=== PATIENT | male | born 1960 | race Two or more races ===

== ENCOUNTER 2018-06-09 04:44 | Inpatient (IN) | payer MEDICAID ==
[~2018-06-09] VITALS: Ht 172.7 cm; Wt 68.0 kg
[2018-06-09 05:58] VITALS: BP 135/63
--- NOTE | 2018-06-09 06:36 | NUR ---
RN ADMITTING NOTES RECEIVED PATIENT FROM [facility] ED. IN A GURNEY WITH CONSTRUCTION FRAMER. PATIENT STABLE ON TRANSFER. VSS. PATIENT OBSERVED TO BE LETHARGIC, AMBULATORY WITH STEADY GAIT, STANDBY ASSIST. PATIENT UNABLE TO PROVIDE INFORMATION FOR ADMIT PROCESS, WILL ENDORSE ACCORDINGLY TO AM NURSE TO COMPLETE ADMIT PROCESS. SKIN CHECK DONE WITH CHARGE NURSE, PICTURES TAKEN AND FILED IN CHART. CONNECTED TO TELE, SR WITH PVCs, HR AT 80-90s. NO COMPLAINT OF SHORTNESS OF BREATH ON TIME OF ADMIT. MRSA SWAB DONE, SENT TO LAB. CALL LIGHT IN REACH. BED ALARM IN PLACE. WILL ENDORSE ACCORDINGLY. Addendum: 06/09/18 at 0643 by OUMAR GARG RN UNABLE TO IDENTIFY AND REPORT HOME MEDS, PATIENT IS LETHARGIC. WILL ENDORSE TO F/UP ACCORDINGLY.
[2018-06-09] MEDS ORDERED: ACETAMINOPHEN 325 MG TABLET PO PRN (07:30)
[2018-06-09] MEDS ORDERED: ONDANSETRON HCL/PF 4 MG/2 ML VIAL IVP PRN (07:30)
[2018-06-09] MEDS ORDERED: Z GUARD REMEDY 2 OZ OINT TP PRN (07:30)
[2018-06-09] MEDS ORDERED: MAGNESIUM HYDROXIDE 30 ML UDC PO PRN (07:30)
[2018-06-09] MEDS ORDERED: DEXTROSE 50%-WATER 50 ML DISP.SYRIN IV PRN (07:30)
[2018-06-09] MEDS: BLOOD SUGAR DIAGNOSTIC 1 EACH STRIP IN SCH ×4 (07:39→22:26)
[2018-06-09 08:00] VITALS: BP 124/76
[2018-06-09] MEDS ORDERED: [UNRECOGNIZED DRUG - REMARK] PO (08:25)
[2018-06-09] MEDS ORDERED: [UNRECOGNIZED DRUG - REMARK] PO (08:25)
[2018-06-09] MEDS ORDERED: ERGO500014 PO (09:23)
[2018-06-09] MEDS ORDERED: BUME1TAB4 PO (09:23)
[2018-06-09] MEDS ORDERED: SPIR25TA PO (09:23)
[2018-06-09] MEDS ORDERED: AMLO5TAB9 PO (09:23)
--- NOTE | 2018-06-09 09:43 | NUR ---
WOUND CARE CONSULT: PT PRESENTS WITH SACRAL ULCER, STAGE 3 AND BUTTOCK RASH, PRESENT ON ADMISSION. PT IS ABLE TO REPOSITION IN BED AND IS CONTINENT. RECOMMENDATIONS MADE FOR WOUND CARE AND SKIN PROTECTION. DISCUSSED WITH NURSING STAFF. RECOMMEND SURGICAL CONSULT. WILL SEE PRN. ROCK IN AGREEMENT WITH PLAN OF CARE. CURRENT MITUL SCORE IS 18. Addendum: 06/09/18 at 0944 by ANNIE NOLEN WNDNU Amended: Links added.
[2018-06-09] MEDS: AZITHROMYCIN 250 MG TABLET PO SCH (10:23)
[2018-06-09] MEDS: HYDROGEL DRESSING 90 GM TUBE TP PRN (10:23)
[2018-06-09 10:29] LABS: BASOPHILS % (AUTO) 0.4 % (0.0-2.0); EOSINOPHILS % (AUTO) 0.1 % (0.0-6.0); HEMATOCRIT 36 % (39-51); LYMPHOCYTES # (AUTO) 0.4 /CMM (0.8-4.8); LYMPHOCYTES % (AUTO) 6.3 % (20.0-44.0); MEAN CORPUSCULAR HGB CONC 34 g/dl (31.0-36.0); MEAN CORPUSCULAR VOLUME 90 fL (80-96); MONOCYTES # (AUTO) 0.4 /CMM (0.1-1.30); MONOCYTES % (AUTO) 7.3 % (2.0-12.0); NEUTROPHILS # (AUTO) 4.9 /CMM (1.8-8.9); NEUTROPHILS % (AUTO) 85.9 % (43.0-81.0); PLATELET COUNT (AUTO) 128 /CMM (150-450); RED BLOOD CELL COUNT(AUTO) 3.98 MIL/uL (4.5-6.0); WHITE BLOOD COUNT (AUTO) 5.7 K/uL (4.3-11.0)
[2018-06-09] MEDS: HYDROGEL DRESSING 90 GM TUBE TP SCH (10:35)
[2018-06-09] MEDS: INSULIN REGULAR, HUMAN 100 UNIT/ML 3 ML VIAL SQ PRN ×3 (10:35→22:26)
[2018-06-09 10:41] LABS: ALBUMIN 2.7 g/dL (3.4-5.0); BILIRUBIN,DIRECT 0.3 mg/dL (0.0-0.2); BILIRUBIN,TOTAL 0.9 mg/dL (0.2-1.0); CALCIUM, SERUM 8.3 mg/dL (8.5-10.1); CREATININE 1.4 mg/dL (0.6-1.3); MAGNESIUM 1.6 mg/dL (1.8-2.4); PHOSPHORUS 3.7 mg/dL (2.5-4.9); POTASSIUM 4.2 mmol/L (3.5-5.1); TOTAL PROTEIN, SERUM 6.5 g/dL (6.4-8.2)
[2018-06-09 10:50] LABS: THYROID STIMULATING HORMONE 0.504 uIU/mL (0.358-3.74)
[2018-06-09] MEDS: IPRATROPIUM NEB FS 0.5 MG/2.5 ML AMPUL.NEB NEB SCH ×3 (11:02→19:30)
[2018-06-09] MEDS: ALBUTEROL FS 2.5 MG/0.5 ML VIAL.NEB NEB SCH ×3 (11:02→19:30)
[2018-06-09 11:17] LABS: ABG OXYGEN SATURATION 93.9 % (92.0-98.5); ABG PCO2 33.5 mmHg (35.0-45.0); ABG PH 7.459 (7.350-7.450); AaDO2 38.6 mmHg; MetHb 0.5 % (0.0-1.5); O2Hb 92.5 % (94.0-97.0); SITE, ABG Right Radial
[2018-06-09] MEDS: HYDROCODONE/APAP 5/325MG 1 EACH TABLET PO PRN ×3 (11:41→21:47)
[2018-06-09 12:00] VITALS: BP 113/74
[2018-06-09] MEDS ORDERED: MAGNESIUM OXIDE 400 MG TABLET PO ONE (13:00)
--- NOTE | 2018-06-09 13:56 | NUR ---
Social service consult requested by FARZANA Rodriguez for homelessness. Pt. is a 58 year old gentleman who was admitted to [facility] for pneumonia. SW met with pt. bedside. Pt. is alert and oriented x 4. Pt. was sitting upright with his legs dangling off the bed. Pt. is very pleasant and cooperative with SW during the assessment. Pt. is ambulatory. Pt. was renting a private room in [place] until last week. Pt. stated he had to leave to pay for his car registration and insurance. Pt. has been homeless since then and has been staying in his car. Pt. states his car is currently parked by a [employer] yard. Pt. receives $1000/ month in SSI. Pt. states he will look for a room for rent at the beginning of next month when he has his SSI. SW informed pt. she can provide him phone number to [facility] since the rental rate starts at $650. Pt. stated, " that would work for me." Pt. denies any alcohol and drug use. 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 Pt. smokes 3 to 4 cigarettes per day. Pt. states he gets depressed and anxious once in a while but not enough to take medication for it. SW offered pt. [facility] placement and explained the pick up worker location and times. Pt. stated, he will most likely not go to a assisted but will take the resources. SW to give pt list of [facility] placement [phone] and other Homeless resources which will include health clinics, mental health clinics etc. Homeless patient waiver form to be signed by patient upon discharge. No other social service needs are required at this time. SW is available, if needed.
[2018-06-09] MEDS: Magnesium 1GM/D5W 100ML PREMIX 100 ML IV SCH ×2 (14:08→15:46)
[2018-06-09] MEDS: FUROSEMIDE 40 MG/4 ML VIAL IV SCH ×3 (14:08→21:48)
--- NOTE | 2018-06-09 15:33 | NUR ---
SW met with pt. bedside and gave him the following resources: List of [facility] program [phone] with picker feeder time and locations; [facility] [place] Homeless Directory, mental health clinics such as [facility] [address] [place] [address] ;[facility] ([facility]al Health) [address], 2nd [place] [address] Main Number: ;[facility] [id number] [place], [place] [phone] ;[facility] [address] [place], [place] [phone] Healthcare Clinics for Homeless Patients [facility] [address], Vaccines and infectious disease resource [address] [place]. [place] Hours: M, T, Th, F 8:30AM-4:30PM Walk-ins allowed Provide medical screening and pharmacy [facility] [address] [place] [address] Vaccines and infectious diseases Hours M-F 8AM-3:30PM Walk-ins allowed Provide medical screening and pharmacy [facility] [address] [place] [address] Hours 8AM-4:30PM Walk-ins allowed Provide medical screening and pharmacy SW also gave pt. information to [facility] $700/MONTH CONTACT [facility] ;[facility] $650/MONTH CONTACT [facility] ;LOCATIONS IN [facility]. Homeless Patient Waiver form was signed by the pt. and placed in pt's chart. No other social service needs are requested at this time.
[2018-06-09 16:00] VITALS: BP 119/80
[2018-06-09 20:00] VITALS: BP_SYST 136; BP_SYST 144; BP_DIAS 76; BP_DIAS 81
--- NOTE | 2018-06-09 20:00 | NUR ---
RN INITIAL NOTES RECEIVED PATIENT IN BED. A&O X4. ON TO TELE, SR WITH PVCs, HR 90s. PT COMPLAINT OF SHORTNESS OF BREATH, PT PLACED ON O2 2L NS. BED IN LOW AND LOCKED POSITION, CALL LIGHT IN REACH. BED ALARM IN PLACE. WILL CONT TO MONITOR.
[2018-06-09] MEDS: ZOLPIDEM TARTRATE 5 MG TABLET PO PRN (21:48)
[2018-06-09] MEDS: CEFTRIAXONE 1 G in IV D5W 50 ML IV SCH (21:48)
[2018-06-10] VITALS: BP 136/81
[2018-06-10] MEDS: ALBUTEROL FS 2.5 MG/0.5 ML VIAL.NEB NEB SCH ×4 (01:25→18:52)
[2018-06-10] MEDS: IPRATROPIUM NEB FS 0.5 MG/2.5 ML AMPUL.NEB NEB SCH ×4 (01:25→18:52)
[2018-06-10 04:00] VITALS: BP 133/80
[2018-06-10] MEDS: HYDROCODONE/APAP 5/325MG 1 EACH TABLET PO PRN ×5 (04:28→23:07)
[2018-06-10 06:27] LABS: BASOPHILS % (AUTO) 0.5 % (0.0-2.0); EOSINOPHILS % (AUTO) 0.1 % (0.0-6.0); HEMATOCRIT 37 % (39-51); HEMOGLOBIN 12.6 g/dL (13.5-17.5); LYMPHOCYTES # (AUTO) 0.4 /CMM (0.8-4.8); LYMPHOCYTES % (AUTO) 7.6 % (20.0-44.0); MEAN CORPUSCULAR HGB CONC 34 g/dl (31.0-36.0); MEAN CORPUSCULAR VOLUME 90 fL (80-96); MONOCYTES # (AUTO) 0.4 /CMM (0.1-1.30); MONOCYTES % (AUTO) 6.6 % (2.0-12.0); NEUTROPHILS # (AUTO) 4.9 /CMM (1.8-8.9); NEUTROPHILS % (AUTO) 85.2 % (43.0-81.0); PLATELET COUNT (AUTO) 143 /CMM (150-450); RED BLOOD CELL COUNT(AUTO) 4.12 MIL/uL (4.5-6.0); WHITE BLOOD COUNT (AUTO) 5.8 K/uL (4.3-11.0)
[2018-06-10 06:35] LABS: ALBUMIN 2.8 g/dL (3.4-5.0); BILIRUBIN,TOTAL 0.6 mg/dL (0.2-1.0); CALCIUM, SERUM 8.2 mg/dL (8.5-10.1); CREATININE 1.4 mg/dL (0.6-1.3); MAGNESIUM 2.1 mg/dL (1.8-2.4); POTASSIUM 4.1 mmol/L (3.5-5.1); TOTAL PROTEIN, SERUM 6.8 g/dL (6.4-8.2)
--- NOTE | 2018-06-10 07:00 | NUR ---
SOCIAL WORK COORDINATOR OPENING NOTES RECEIVED PT IN BED, ASLEEP BUT EASILY AROUSABLE. PT ON ROOM AIR TOLERATING WELL. 100% O2. A/OX4. ON TELE SR WITH PVC. RFA #20 SL. PATENT. BED IN LOCKED/LOWEST POSITION. CALL LIGHT IN REACH. WILL CONT TO MONITOR.
--- NOTE | 2018-06-10 07:04 | NUR ---
RN CLOSING NOTES NO CHANGE IN PTS CONDITION OVERNIGHT, PAIN MEDS GIVEN TWICE OVERNIGHT. WILL ENDORSE TO AM RN.
[2018-06-10 08:00] VITALS: BP 111/92
[2018-06-10] MEDS ORDERED: BUMETANIDE INJ 8 MG in IV NS 0.9% 48 ML IV ONE (08:00)
[2018-06-10] MEDS: BLOOD SUGAR DIAGNOSTIC 1 EACH STRIP IN SCH ×4 (08:19→22:11)
[2018-06-10] MEDS: AZITHROMYCIN 250 MG TABLET PO SCH (08:39)
[2018-06-10] MEDS: INSULIN REGULAR, HUMAN 100 UNIT/ML 3 ML VIAL SQ PRN ×4 (08:41→22:14)
[2018-06-10] MEDS: HYDROGEL DRESSING 90 GM TUBE TP SCH (09:31)
[2018-06-10 16:00] VITALS: BP 137/89
[2018-06-10 16:02] VITALS: BP 137/89
[2018-06-10] MEDS: LACTOBACILLUS RHAMNOSUS GG 1 EACH CAP.SPRINK PO SCH (16:35)
--- NOTE | 2018-06-10 20:00 | NUR ---
MS RN NOTES RECEIVED PATIENT AWAKE IN BED WITH NO DISTRESS NOTED. CALL LIGHT WITHIN REACH. PERIPHERAL LINE INTACT AND PATENT. NO C/O PAIN OR DISCOMFORT. BED IN LOW LOCK SETTING. ALL BELONGINGS KEPT NEAR BEDSIDE. WILL CONTINUE TO MONITOR.
[2018-06-10] MEDS: CEFTRIAXONE 1 G in IV D5W 50 ML IV SCH (20:38)
[2018-06-10] MEDS: ZOLPIDEM TARTRATE 5 MG TABLET PO PRN (20:39)
[2018-06-11] MEDS: IPRATROPIUM NEB FS 0.5 MG/2.5 ML AMPUL.NEB NEB SCH ×4 (00:37→19:49)
[2018-06-11] MEDS: ALBUTEROL FS 2.5 MG/0.5 ML VIAL.NEB NEB SCH ×4 (00:37→19:49)
[2018-06-11 03:29] VITALS: BP 137/89
[2018-06-11 04:08] VITALS: BP 137/89
[2018-06-11] MEDS: HYDROCODONE/APAP 5/325MG 1 EACH TABLET PO PRN ×5 (04:49→21:54)
[2018-06-11] MEDS: INSULIN REGULAR, HUMAN 100 UNIT/ML 3 ML VIAL SQ PRN ×4 (06:19→22:05)
--- NOTE | 2018-06-11 06:35 | NUR ---
MS RN NOTES PATIENT AWAKE IN BED WITH NO DISTRESS NOTED. CALL LIGHT WITHIN REACH. ALL DUE MEDS GIVEN ORDERED WIHT NO ASE NOTED. NO FURTHER C/O PAIN OR DISCOMFORT. PERIPHERAL LINE INTACT AND PATENT. BED IN LOW LOCK SETTING. ALL BELONGINGS KEPT NEAR BEDSIDE. WILL ENDORSE TO ONCOMING SHIFT.
[2018-06-11 06:51] LABS: BASOPHILS % (AUTO) 0.5 % (0.0-2.0); EOSINOPHILS % (AUTO) 0.1 % (0.0-6.0); HEMATOCRIT 39 % (39-51); HEMOGLOBIN 13.3 g/dL (13.5-17.5); LYMPHOCYTES # (AUTO) 0.5 /CMM (0.8-4.8); LYMPHOCYTES % (AUTO) 9.3 % (20.0-44.0); MEAN CORPUSCULAR HGB CONC 34 g/dl (31.0-36.0); MEAN CORPUSCULAR VOLUME 89 fL (80-96); MONOCYTES # (AUTO) 0.4 /CMM (0.1-1.30); MONOCYTES % (AUTO) 7.3 % (2.0-12.0); NEUTROPHILS # (AUTO) 4.2 /CMM (1.8-8.9); NEUTROPHILS % (AUTO) 82.8 % (43.0-81.0); PLATELET COUNT (AUTO) 161 /CMM (150-450); RED BLOOD CELL COUNT(AUTO) 4.36 MIL/uL (4.5-6.0)
[2018-06-11 06:57] LABS: ALBUMIN 2.9 g/dL (3.4-5.0); BILIRUBIN,TOTAL 0.7 mg/dL (0.2-1.0); CALCIUM, SERUM 8.7 mg/dL (8.5-10.1); CREATININE 1.4 mg/dL (0.6-1.3); MAGNESIUM 1.8 mg/dL (1.8-2.4); PHOSPHORUS 4.8 mg/dL (2.5-4.9); POTASSIUM 3.7 mmol/L (3.5-5.1); TOTAL PROTEIN, SERUM 7.1 g/dL (6.4-8.2)
--- NOTE | 2018-06-11 07:20 | NUR ---
MS RN OPENING NOTE RECEIVED PT IN BED, ALERT AND ORIENTED X4. DENIES CHEST PAIN, SOB, N/V. BREATHING IS EVEN AND UNLABORED ON ROOM AIR. NO ACUTE DISTRESS NOTED AT THIS TIME. RIGHT FA #20G IV IS SALINE LOCKED WITHOUT REDNESS OR SWELLING. ALL NEEDS ATTENDED TO. BED IS LOCKED AND IN LOWEST POSITION, SIDE RAILS UP X2, CALL LIGHT AND POSSESSIONS WITHIN REACH.
[2018-06-11] MEDS: BLOOD SUGAR DIAGNOSTIC 1 EACH STRIP IN SCH ×5 (07:45→21:53)
[2018-06-11 08:00] VITALS: BP 126/83
[2018-06-11] MEDS: LACTOBACILLUS RHAMNOSUS GG 1 EACH CAP.SPRINK PO SCH ×2 (09:14→16:34)
[2018-06-11] MEDS: AZITHROMYCIN 250 MG TABLET PO SCH (09:14)
[2018-06-11] MEDS: HYDROGEL DRESSING 90 GM TUBE TP SCH (09:16)
[2018-06-11] MEDS: HYDROGEL DRESSING 90 GM TUBE TP PRN (09:16)
[2018-06-11] MEDS ORDERED: BUMETANIDE INJ 8 MG in IV NS 0.9% 48 ML IV ONE (10:30)
[2018-06-11] MEDS: POTASSIUM CHLORIDE 20 MEQ TAB.PRT.SR PO SCH ×2 (11:38→13:24)
--- NOTE | 2018-06-11 15:25 | NUR ---
MS JIMENEZ NOTE PER SARAH ZAIDI NP, NO PRN BREATHING TREATMENTS INDICATED AT THIS TIME. Addendum: 06/11/18 at 1733 by BRODY FARIAS RN PLEASE DISREGARD, ERROR WRONG TIME
[2018-06-11 16:00] VITALS: BP 120/65
--- NOTE | 2018-06-11 17:13 | NUR ---
MS RN NOTE PAGED EPIC FOR HOSPITALIST SARAH ZAIDI NP REGARDING PT REQUEST FOR PRN BREATHING TREATMENT. AWAITING RESPONSE.
--- NOTE | 2018-06-11 17:25 | NUR ---
MS TONY NOTE PER SARAH ZAIDI NP, NO PRN BREATHING TREATMENTS INDICATED AT THIS TIME.
--- NOTE | 2018-06-11 18:37 | NUR ---
MS RN CLOSING NOTE PT IN BED, ALERT AND ORIENTED X4. DENIES CHEST PAIN, SOB, N/V. BREATHING IS EVEN AND UNLABORED ON ROOM AIR. NO ACUTE DISTRESS NOTED AT THIS TIME. RIGHT FA #20G IV IS SALINE LOCKED WITHOUT REDNESS OR SWELLING. ASSISTED WITH ADLS, WOUND CARE PROVIDED ORDERED. ALL NEEDS ATTENDED TO. BED IS LOCKED AND IN LOWEST POSITION, SIDE RAILS UP X2, CALL LIGHT AND POSSESSIONS WITHIN REACH. WILL ENDORSE TO AIRCRAFT MAINTENANCE INSTRUCTOR NURSE FOR CONTINUITY OF CARE.
[2018-06-11 20:00] VITALS: BP 133/66
[2018-06-11] MEDS: CEFTRIAXONE 1 G in IV D5W 50 ML IV SCH (21:10)
[2018-06-11] MEDS: ZOLPIDEM TARTRATE 5 MG TABLET PO PRN (21:53)
--- NOTE | 2018-06-11 22:00 | NUR ---
PT'S BLOOD SUGAR LEVEL 433, NO S/S OF HYPERGLYCEMIA, PT AWAKE, ALERT, CONSUELO BARAJAS PERFORMANCE INSTRUCTOR MADE AWARE, WITH ORDER TO GIVE COVERAGE PER SLIDING SCALE 10 UNITS. NO ANY OTHER ORDERS WERE RECEIVED AT THIS TIME.
[2018-06-12] MEDS: ALBUTEROL FS 2.5 MG/0.5 ML VIAL.NEB NEB SCH ×4 (01:25→19:37)
[2018-06-12] MEDS: IPRATROPIUM NEB FS 0.5 MG/2.5 ML AMPUL.NEB NEB SCH ×4 (01:25→19:37)
[2018-06-12] MEDS: HYDROCODONE/APAP 5/325MG 1 EACH TABLET PO PRN ×4 (02:12→21:50)
[2018-06-12 04:00] VITALS: BP 144/52
[2018-06-12 07:04] LABS: BASOPHILS % (AUTO) 0.6 % (0.0-2.0); EOSINOPHILS % (AUTO) 0.1 % (0.0-6.0); HEMATOCRIT 39 % (39-51); HEMOGLOBIN 13.1 g/dL (13.5-17.5); LYMPHOCYTES # (AUTO) 0.7 /CMM (0.8-4.8); LYMPHOCYTES % (AUTO) 13.3 % (20.0-44.0); MEAN CORPUSCULAR HGB CONC 34 g/dl (31.0-36.0); MEAN CORPUSCULAR VOLUME 88 fL (80-96); MONOCYTES # (AUTO) 0.4 /CMM (0.1-1.30); MONOCYTES % (AUTO) 7.5 % (2.0-12.0); NEUTROPHILS # (AUTO) 4.3 /CMM (1.8-8.9); NEUTROPHILS % (AUTO) 78.5 % (43.0-81.0); PLATELET COUNT (AUTO) 173 /CMM (150-450); RED BLOOD CELL COUNT(AUTO) 4.37 MIL/uL (4.5-6.0); WHITE BLOOD COUNT (AUTO) 5.4 K/uL (4.3-11.0)
[2018-06-12 07:24] LABS: ALBUMIN 2.9 g/dL (3.4-5.0); BILIRUBIN,TOTAL 0.6 mg/dL (0.2-1.0); CALCIUM, SERUM 8.6 mg/dL (8.5-10.1); CREATININE 1.7 mg/dL (0.6-1.3); MAGNESIUM 1.9 mg/dL (1.8-2.4); PHOSPHORUS 5.1 mg/dL (2.5-4.9); POTASSIUM 4.1 mmol/L (3.5-5.1)
[2018-06-12] MEDS: BLOOD SUGAR DIAGNOSTIC 1 EACH STRIP IN SCH ×4 (07:30→22:04)
--- NOTE | 2018-06-12 07:30 | NUR ---
MS RN Opening Notes Patient asleep, resting in bed. Alert and oriented x4, able to make needs known. No complaints of pain at this time. Respirations even and unlabored on room air, no acute distress noted. Peripheral IV to the right forearm 20 gauge, intact, patent and saline locked. Updated patient on current plan of care and safety measures. Patient verbalized understanding. Safety and fall precautions in place: bed in lowest and locked position, side rails up x2, bed alarm on, call light and personal possessions within reach. Patient verbalized understanding. Will continue to monitor and intervene as needed.
[2018-06-12 08:00] VITALS: BP 140/64
[2018-06-12] MEDS: HYDROGEL DRESSING 90 GM TUBE TP SCH (09:00)
[2018-06-12] MEDS: LACTOBACILLUS RHAMNOSUS GG 1 EACH CAP.SPRINK PO SCH ×2 (09:01→17:34)
[2018-06-12] MEDS: AZITHROMYCIN 250 MG TABLET PO SCH (09:01)
[2018-06-12] MEDS: HYDROGEL DRESSING 90 GM TUBE TP PRN (09:03)
[2018-06-12] MEDS: INSULIN REGULAR, HUMAN 100 UNIT/ML 3 ML VIAL SQ PRN ×3 (12:07→22:11)
[2018-06-12] MEDS: methylPREDNISolone SOD SUCC 40 MG/ML VIAL IV SCH ×2 (12:11→17:34)
--- NOTE | 2018-06-12 12:30 | NUR ---
PT'S BLOOD SUGAR LEVEL 499, NO S/S OF HYPERGLYCEMIA. PT AWAKE, ALERT, Hospitalist Darrius Rodrigues MADE AWARE, WITH ORDER TO GIVE COVERAGE PER SLIDING SCALE 10 UNITS. NO ANY OTHER ORDERS WERE RECEIVED AT THIS TIME, noted. Will continue to monitor.
[2018-06-12 16:00] VITALS: BP 140/64
--- NOTE | 2018-06-12 17:30 | NUR ---
PT'S BLOOD SUGAR LEVEL 521, NO S/S OF HYPERGLYCEMIA. PT AWAKE, ALERT, Hospitalist Darrius Rodrigues MADE AWARE, WITH ORDER TO GIVE COVERAGE PER SLIDING SCALE 10 UNITS. NO ANY OTHER ORDERS WERE RECEIVED AT THIS TIME, noted. Will continue to monitor.
--- NOTE | 2018-06-12 18:54 | NUR ---
MS RN Closing Notes Patient asleep, resting in bed. Alert and oriented x4, able to make needs known. No complaints of pain at this time. Respirations even and unlabored on room air, no acute distress noted. Peripheral IV to the right forearm 20 gauge, intact, patent and saline locked. Updated patient on current plan of care and safety measures. Wound care rendered as ordered. All due medications given. Safety and fall precautions in place: bed in lowest and locked position, side rails up x2, bed alarm on, call light and personal possessions within reach. Patient verbalized understanding. Will continue to monitor and intervene as needed.
--- NOTE | 2018-06-12 19:10 | NUR ---
RN MS OPENING NOTES RECEIVED PATIENT IN BED AWAKE ALERT AND ORIENTED X 4, ABLE TO VERBALIZE NEEDS, RESPIRATIONS EVEN AND UNLABORED WITH EQUAL RISE AND FALL OF CHEST, DENIES ANY PAIN OR DISCOMFORT AT THIS TIME, URINAL AT BEDSIDE, PATIENT HAS BRP PRIVLAGES.IV SITE TO RIGHT FA #20 G SL, INTACT AND PATENT, NO REDNESS, NO INFILTRATION PRESENT,ORIENTED TO STAFF AND CALL LIGHT AND KEPT WITHIN REACH, SAFETY PRECAUTIONS IN PLACE, LOW BED AND LOCKED, ALL NEEDS ATTENDED AT THIS TIME, REMAINS COMFORTABLE WILL CONTINUE TO MONITOR AND ADDRESS NEEDS.
[2018-06-12 20:00] VITALS: BP_SYST 158; BP_DIAS 74; BP_DIAS 80
--- NOTE | 2018-06-12 21:50 | NUR ---
RN MS NOTES PATIENT NOTED WITH COUGH AND COMPLAINT OF PAIN TO CHEST, REQUESTING FOR PAIN MEDICATION NORCO VS WNL NO SOB, SPO2 100% NORCO PRN 5/325MG GIVEN ORDERED, WILL CONTINUE TO MONITOR FOR EFFECTIVENESS
[2018-06-12] MEDS: CEFTRIAXONE 1 G in IV D5W 50 ML IV SCH (21:51)
--- NOTE | 2018-06-12 22:00 | NUR ---
RN MS NOTES UPON CHECKING ACCUCHECK NOTED AT 591 REPEAT DONE ACCUCHECK STATES HIGH. ROOM CLEANER CONSUELO MADE AWARE , PATIENT ALSO STATES HE HAD JUICES, CRACKERS AND SANDWHICH IN AFTERNOON, PATIENT IS ASYMPTOMATIC PER ROOM CLEANER GIVE 10 UNITS PER SLIDING SCALE NEW ORDERS FOR LANTUS, WILL FOLLOW ORDERED NEW ORDER FOR AGGRESSIVE SLIDING SCALE AND REPEAT ACCUCHECK AT 2AM PATIENT MADE AWARE VERBALIZE HE UNDERSTANDS WILL CONTINUE TO MONITOR AND REPORT ANY FURTHER CHANGES.
[2018-06-12] MEDS ORDERED: DEXTROSE 50%-WATER 50 ML DISP.SYRIN IV PRN (22:30)
[2018-06-12] MEDS ORDERED: INSULIN GLARGINE, 100 UNIT/ML CARTRIDGE SQ SCH (22:30)
[2018-06-12] MEDS ORDERED: *INSULIN REGULAR(HUMULIN R)HUM 100 UNIT/ML VIAL SQ PRN (22:30)
[2018-06-13] MEDS: IPRATROPIUM NEB FS 0.5 MG/2.5 ML AMPUL.NEB NEB SCH ×3 (01:11→13:43)
[2018-06-13] MEDS: ALBUTEROL FS 2.5 MG/0.5 ML VIAL.NEB NEB SCH ×3 (01:11→13:44)
--- NOTE | 2018-06-13 02:30 | NUR ---
RN MS NOTES RECHECKED PATIENT ACCUCHECK 532 REPEAT 555 FEATHER MIXER CONSUELO MADE AWARE PER CONSUELO WILL PLACE NEW ORDER FOR 10 UNITS IVP ONCE, CBC, CMP, GLUCOSE STAT, AND RECHECK ACCUCHECK 30 MINS AFTER GIVEN, ORDER READ BACK. PER NURSING LEAD QUALITY TECHNICIAN VERIFIED OKAY TO GIVE ON THIS INSULIN IVP ON THIS UNIT. WILL CONTINUE TO MONITOR AND FOLLOW UP WITH CONSUELO PATIENT IS ASYMPTOMATIC, ALERT AND ORIENTED X4.
[2018-06-13 02:45] LABS: BASOPHILS % (AUTO) 0.4 % (0.0-2.0); HEMATOCRIT 42 % (39-51); HEMOGLOBIN 13.8 g/dL (13.5-17.5); LYMPHOCYTES # (AUTO) 0.4 /CMM (0.8-4.8); LYMPHOCYTES % (AUTO) 4.1 % (20.0-44.0); MEAN CORPUSCULAR HGB CONC 33 g/dl (31.0-36.0); MEAN CORPUSCULAR VOLUME 90 fL (80-96); MONOCYTES # (AUTO) 0.3 /CMM (0.1-1.30); MONOCYTES % (AUTO) 3.1 % (2.0-12.0); NEUTROPHILS # (AUTO) 8.5 /CMM (1.8-8.9); NEUTROPHILS % (AUTO) 92.4 % (43.0-81.0); PLATELET COUNT (AUTO) 216 /CMM (150-450); RED BLOOD CELL COUNT(AUTO) 4.62 MIL/uL (4.5-6.0); WHITE BLOOD COUNT (AUTO) 9.2 K/uL (4.3-11.0)
[2018-06-13] MEDS ORDERED: INSULIN REGULAR, HUMAN 100 UNIT/ML 3 ML VIAL IV ONE (03:00)
[2018-06-13 03:06] LABS: CREATININE 2.1 mg/dL (0.6-1.3); POTASSIUM 4.5 mmol/L (3.5-5.1)
[2018-06-13 04:00] VITALS: BP 149/83
--- NOTE | 2018-06-13 04:10 | NUR ---
TONY MS NOTES MADE CONSUELO AWARE OF ACCUCHECK 30 MINS AFTER IVP ADMINISTRATION ACCUCHECK 434 MADE AWARE OF OUT OF RANGE LABS WITH NEW ORDER FOR IVF NS AT 75ML/HR. NO FURTHER ORDERS AT THIS TIME, WILL CONTINUE TO MONITOR. Addendum: 06/13/18 at 0424 by LYNDSEY MCGRATH RN IVP INSULIN ADMINISTRATION
[2018-06-13] MEDS ORDERED: IV NS 0.9% 1,000 ML IV PRN (04:30)
[2018-06-13] MEDS: HYDROCODONE/APAP 5/325MG 1 EACH TABLET PO PRN ×2 (04:32→08:44)
--- NOTE | 2018-06-13 04:32 | NUR ---
RN MS NOTES PATIENT COMPLAINING OF PAIN TO CHEST 7/10 NOTED WITH COUGH, ACHY. NON RADIATING NO SOB , NO DISTRESS PRESENT, REQUESTING FOR NORCO. VS WNL 149/83,98%RA,20,55, NORCO 5/325 MG GIVEN ORDERED PRN WILL CONTINUE TO MONITOR FOR EFFECTIVENESS.
--- NOTE | 2018-06-13 06:30 | NUR ---
RN MS CLOSING NOTES PATIENT IN BED AWAKE ALERT AND ORIENTED X 4, ABLE TO VERBALIZE NEEDS, RESPIRATIONS EVEN AND UNLABORED WITH EQUAL RISE AND FALL OF CHEST, DENIES ANY PAIN OR DISCOMFORT AT THIS TIME, URINAL AT BEDSIDE, PATIENT HAS BRP.IV SITE TO RIGHT FA #22 G SL, INTACT AND PATENT, NO REDNESS, NO INFILTRATION PRESENT,IVF NS AT 75ML/HR RUNNING ORDERED, CALL LIGHT AND KEPT WITHIN REACH, SAFETY PRECAUTIONS IN PLACE, LOW BED AND LOCKED, ALL NEEDS ATTENDED AT THIS TIME, REMAINS COMFORTABLE WILL CONTINUE TO MONITOR AND ENDORSE TO NEXT SHIFT.
[2018-06-13] MEDS ORDERED: INSULIN GLARGINE, 100 UNIT/ML CARTRIDGE SQ SCH (07:30)
--- NOTE | 2018-06-13 07:41 | NUR ---
MS/RN OPENING NOTE PATIENT IN BED IN STABLE CONDITION. A/OX 4. NO SIGNS OF ACUTE DISTRESS. NO COMPLAIN OF PAIN OR DISCOMFORT. ON MONITOR FOR ELEVATED BLOOD SUGAR. ALL NEEDS ATTENDED TO. CALL LIGHT WITHIN REACH. WILL CONTINUE TO MONITOR TO ENSURE SAFETY.
[2018-06-13 08:00] VITALS: BP 142/73
[2018-06-13] MEDS: BLOOD SUGAR DIAGNOSTIC 1 EACH STRIP IN SCH ×2 (08:24→12:02)
[2018-06-13] MEDS: AZITHROMYCIN 250 MG TABLET PO SCH (08:26)
[2018-06-13] MEDS: methylPREDNISolone SOD SUCC 40 MG/ML VIAL IV SCH ×2 (08:26→12:03)
[2018-06-13] MEDS: HYDROGEL DRESSING 90 GM TUBE TP PRN (08:26)
[2018-06-13] MEDS: LACTOBACILLUS RHAMNOSUS GG 1 EACH CAP.SPRINK PO SCH (08:27)
[2018-06-13] MEDS: HYDROGEL DRESSING 90 GM TUBE TP SCH (08:39)
[2018-06-13] MEDS: INSULIN REGULAR, HUMAN 100 UNIT/ML 3 ML VIAL SQ PRN ×2 (08:41→12:21)
[2018-06-13 12:12] VITALS: BP 142/73
[2018-06-13] MEDS ORDERED: LEVO500T75 PO (13:31)
--- NOTE | 2018-06-13 14:45 | NUR ---
MS/RN PATIENT REFUSED SKIN ASSESSMENT TO BE DONE AND WOUND PICS TO BE TAKE FOR DISCHARGE. PER PATIENT, HE IS OKAY AND THEY TOOK PICTURES UPON ADMISSION. OFFERED X 3 WITH RISKS AND BENEFITS EXPLAINED. CONTINUE TO REFUSE.
--- NOTE | 2018-06-13 14:55 | NUR ---
MS/EARLY CHILDHOOD EDUCATION COORDINATOR PATIENT DISCHARGE HOME IN STABLE CONDITION. A/O X 4. NO SIGNS OF ACUTE DISTRESS. NO COMPLAIN OF PAIN OR DISCOMFORT. DISCHARGE EDUCATION PROVIDED, VERBALIZED UNDERSTANDING. MADE AWARE TO FOLLOW UP WITH PRIMARY AND ORTHO DR. GUTIERREZ . VERBALIZED UNDERSTANDING. PRESCRIPTION PROVIDED. ALL NEEDS ATTENDED TO. BUS TOKEN PROVIDED. NAME BAND AND IV LINE REMOVED. LEFT IN STABLE CONDITION. Addendum: 06/13/18 at 1613 by SINAN MATHIS RN NO ORTHO APPT FOLLOW UP NEEDED, PATIENT NOTIFIED. WRONG ENTRY. PATIENT VERBALIZED UNDERSTANDING.
== END 2018-06-13 14:55 | disposition home or self-care (01) | DRG 133 ==
LOC: TELE1 05:29 → MEDSG1 06-10 08:00
PROVIDERS: ADMIT Nurse Practitioner Acute Care; ATTEND Nurse Practitioner Acute Care
DX: J96.01 Acute respiratory failure with hypoxia (principal); N17.0 Acute kidney failure with tubular necrosis; I50.31 Acute diastolic (congestive) heart failure; J15.9 Unspecified bacterial pneumonia; L89.159 Pressure ulcer of sacral region, unspecified stage; E44.0 Moderate protein-calorie malnutrition; D69.6 Thrombocytopenia, unspecified; E11.22 Type 2 diabetes mellitus with diabetic chronic kidney disease; J90 Pleural effusion, not elsewhere classified; D89.9 Disorder involving the immune mechanism, unspecified; E11.65 Type 2 diabetes mellitus with hyperglycemia; E83.42 Hypomagnesemia; I13.0 Hypertensive heart and chronic kidney disease with heart failure and stage 1 through stage 4 chronic kidney disease, or unspecified chronic kidney disease; E87.1 Hypo-osmolality and hyponatremia; N18.9 Chronic kidney disease, unspecified; D63.8 Anemia in other chronic diseases classified elsewhere; K74.60 Unspecified cirrhosis of liver; Z82.49 Family history of ischemic heart disease and other diseases of the circulatory system; Z59.0 Homelessness; Z86.19 Personal history of other infectious and parasitic diseases; Z79.899 Other long term (current) drug therapy; Z72.0 Tobacco use; F15.11 Other stimulant abuse, in remission; J44.0 Chronic obstructive pulmonary disease with (acute) lower respiratory infection; J44.1 Chronic obstructive pulmonary disease with (acute) exacerbation
CPT/HCPCS: 36415; 36600; 71045-TC; 80048-TC; 80053-TC; 80061-TC; 80076-TC; 82803-TC; 82962-TC; 83735-TC; 84100-TC; 84443-TC; 84484-TC; 85025-TC; 87081-TC; 93307-TC; 94799-TC; A4216; A6248; A6402; G0378; J0696; J1815; J1940; J2920; J3475; J3490; J7030; J7050; J7060

== ENCOUNTER 2020-08-21 19:05 | Inpatient (IN) | payer MEDICAID ==
[~2020-08-21] VITALS: Ht 172.7 cm; Wt 71.2 kg
[~2020-08-21 19:05] MED LIST: AMLO-212 PO; BUME1TAB8 PO; ERGO500014 PO; LEVO500T23 PO; SPIR25TA PO
[2020-08-21 19:52] LABS: BASOPHILS % (AUTO) 0.7 % (0.0-2.0); EOSINOPHILS % (AUTO) 0.3 % (0.0-6.0); HEMATOCRIT 45 % (39-51); HEMOGLOBIN 15.3 g/dL (13.5-17.5); LYMPHOCYTES # (AUTO) 0.6 /CMM (0.8-4.8); LYMPHOCYTES % (AUTO) 8.6 % (20.0-44.0); MEAN CORPUSCULAR HGB CONC 34 g/dl (31.0-36.0); MEAN CORPUSCULAR VOLUME 91 fL (80-96); MONOCYTES # (AUTO) 0.4 /CMM (0.1-1.30); MONOCYTES % (AUTO) 6.4 % (2.0-12.0); NEUTROPHILS # (AUTO) 5.4 /CMM (1.8-8.9); PLATELET COUNT (AUTO) 113 /CMM (150-450); RED BLOOD CELL COUNT(AUTO) 4.99 MIL/uL (4.5-6.0); WHITE BLOOD COUNT (AUTO) 6.5 K/uL (4.3-11.0)
[2020-08-21] MEDS ORDERED: ONDANSETRON HCL/PF 4 MG/2 ML VIAL ONE (19:56)
--- NOTE | 2020-08-21 19:56 | NUR ---
CALLED FOR COVID SWAB
[2020-08-21] MEDS ORDERED: MORPHINE SULFATE INJ 4 MG/ML DISP.SYRIN ONE (19:57)
[2020-08-21] MEDS ORDERED: ONDANSETRON HCL/PF 4 MG/2 ML VIAL IVP ONE (20:00)
[2020-08-21] MEDS ORDERED: IV NS 0.9% 500 ML BAG IV ONE (20:00)
[2020-08-21] MEDS ORDERED: MORPHINE SULFATE INJ 2 MG/ML DISP.SYRIN IV ONE (20:00)
[2020-08-21 20:17] LABS: ALANINE AMINOTRANSFERASE 22 U/L (12-78); ALKALINE PHOSPHATASE 105 U/L (46-116); ASPARTATE AMINOTRANSFERASE 21 U/L (15-37); BILIRUBIN,DIRECT 0.2 mg/dL (0.0-0.2); BILIRUBIN,TOTAL 0.8 mg/dL (0.2-1.0); CALCIUM, SERUM 8.1 mg/dL (8.5-10.1); CARBON DIOXIDE 24 mmol/L (21-32); CHLORIDE 98 mmol/L (98-107); CREATININE 1.3 mg/dL (0.6-1.3); LIPASE 195 U/L (73-393); POTASSIUM 4.2 mmol/L (3.5-5.1); SODIUM SERUM 132 mmol/L (136-145); TOTAL PROTEIN, SERUM 6.7 g/dL (6.4-8.2); UREA NITROGEN, BLOOD 29 mg/dL (7-18)
[2020-08-21 20:18] LABS: GLUCOSE 475 mg/dL (74-106)
--- NOTE | 2020-08-21 20:18 | NUR ---
GLUCOSE 475
[2020-08-21] MEDS ORDERED: INSULIN REGULAR, HUMAN 100 UNIT/ML 10 ML VIAL ONE (20:50)
[2020-08-21] MEDS ORDERED: INSULIN REGULAR, HUMAN 100 UNIT/ML 10 ML VIAL SQ ONE (21:00)
--- NOTE | 2020-08-21 21:49 | NUR ---
REPORT GIVEN TO EMMETT JIMENEZ FOR KAILASH
[2020-08-21] MEDS ORDERED: *INS REG3 IJ (23:10)
--- NOTE | 2020-08-21 23:10 | NUR ---
PER PT TAKES 5 UNITS ON INSULIN ONCE A DAY.
--- NOTE | 2020-08-21 23:12 | NUR ---
PT TRANSFERED PER ACLS PROTOCOL
[2020-08-21 23:15] VITALS: BP 127/77
--- NOTE | 2020-08-21 23:15 | NUR ---
VISION IMPAIRED TEACHERCOVER REMOVER NOTE RECEIVED PATIENT ADAMA SYLVESTER. AMBULATED TO BED WITH STEADY GAIT. A/OX4. TOLERATING ROOM AIR. RESPIRATIONS ARE EVEN AND UNLABORED. NO S/S SOB NOTED. C/O CHEST PAIN 09/11. NON RADIATING. EXTERNAL TELE MONITOR READS SINUS RHYTHM HR 63. IN NO APPARENT DISTRESS. IV ACCESS IN LEFT HAND #18 PATENT AND SALINE LOCKED. INATAL PHYSICAL ASSESSMENT COMPLETED AT THIS TIME. SKIN ASSESSMENT COMPETE, SKIN INTACT. TEA BLENDER OBTAINED VITALS AND BELONGINGS LIST. BED IS LOW AND LOCKED, HOB ELEVATED IN SEMI FOWLERS, SIDE RAILS UP X2, CALL LIGHT WITHIN REACH, INFORMED ON USE. WILL CONTINUE TO MONITOR THROUGHOUT SHIFT.
[2020-08-21 23:20] VITALS: BP 130/70
[2020-08-21] MEDS ORDERED: DEXTROSE 50%-WATER 50 ML DISP.SYRIN IV PRN (23:30)
[2020-08-21] MEDS ORDERED: MAG HYDROX/AL HYDROX/SIMETH 30 ML UDC PO PRN (23:30)
[2020-08-21] MEDS ORDERED: MORPHINE SULFATE INJ 2 MG/ML DISP.SYRIN IV PRN (23:30)
[2020-08-21] MEDS ORDERED: ONDANSETRON HCL/PF 4 MG/2 ML VIAL IVP PRN (23:30)
[2020-08-21] MEDS ORDERED: ZOLPIDEM TARTRATE 5 MG TABLET PO PRN (23:30)
[2020-08-21] MEDS ORDERED: MAGNESIUM HYDROXIDE 30 ML UDC PO PRN (23:30)
[2020-08-21] MEDS ORDERED: HYDROCODONE/APAP 5/325MG TABLET PO PRN (23:30)
--- NOTE | 2020-08-21 23:55 | NUR ---
clerk telegraph service note called [facility] to verify patients medications
--- NOTE | 2020-08-22 00:06 | NUR ---
television reporter note called [facility] again to verify medications,
[2020-08-22] MEDS: INSULIN GLARGINE, 100 UNIT/ML CARTRIDGE SQ SCH ×2 (00:12→22:10)
[2020-08-22] MEDS: NITROGLYCERIN 0.4 MG/TAB BOTTLE SL PRN ×2 (00:20→01:58)
--- NOTE | 2020-08-22 00:20 | NUR ---
telesales supervisor note patient c/o chest pain 09/11. pressure. nitro x1 given. reassess after 5 mins, states no more pain. reinformed relationship management lead light use and to press button when feeling chest pain again.
--- NOTE | 2020-08-22 02:10 | NUR ---
CLINICAL COUNSELOR NOTE PATIENT C/O CHEST PAIN 10/11 WHEN RT WAS OBTAINING EKG. BP 112/66. NITRO X1 GIVEN. PATIENT STATES FEELS PRESSURE. NON RADIATING.
[2020-08-22] MEDS: NITROGLYCERIN PACKET 1 GM PACKET TOP SCH ×2 (03:54→16:13)
[2020-08-22 04:00] VITALS: BP 104/70
[2020-08-22 06:21] LABS: BASOPHILS % (AUTO) 0.5 % (0.0-2.0); EOSINOPHILS % (AUTO) 0.4 % (0.0-6.0); HEMATOCRIT 47 % (39-51); HEMOGLOBIN 15.7 g/dL (13.5-17.5); LYMPHOCYTES # (AUTO) 0.8 /CMM (0.8-4.8); LYMPHOCYTES % (AUTO) 11.8 % (20.0-44.0); MEAN CORPUSCULAR HGB CONC 34 g/dl (31.0-36.0); MEAN CORPUSCULAR VOLUME 92 fL (80-96); MONOCYTES # (AUTO) 0.4 /CMM (0.1-1.30); MONOCYTES % (AUTO) 5.9 % (2.0-12.0); NEUTROPHILS # (AUTO) 5.9 /CMM (1.8-8.9); NEUTROPHILS % (AUTO) 81.4 % (43.0-81.0); PLATELET COUNT (AUTO) 130 /CMM (150-450); RED BLOOD CELL COUNT(AUTO) 5.09 MIL/uL (4.5-6.0); WHITE BLOOD COUNT (AUTO) 7.2 K/uL (4.3-11.0)
[2020-08-22 06:38] LABS: CALCIUM, SERUM 7.6 mg/dL (8.5-10.1); CREATININE 1.5 mg/dL (0.6-1.3); MAGNESIUM 1.7 mg/dL (1.8-2.4); PHOSPHORUS 4.4 mg/dL (2.5-4.9); POTASSIUM 4.7 mmol/L (3.5-5.1)
--- NOTE | 2020-08-22 07:27 | NUR ---
FOOD SERVICE AIDE CLOSING NOTE PATIENT RESTING IN BED. A/OX4. ON OXYGEN 2L/MIN VIA NASAL CANNULA. NO RESP DISTRESS.NO CP AT THIS TIME. TELE MONITOR READS SINUS RHYTHM/ SINUS BHUMIKA. DROPPED DOWN TO 47 THE LOWEST.NO DISTRESS. IV ACCESS MAINTAINED IN LEFT HAND #18. BED REMAINS LOW AND LOCKED, HOB ELEVATED IN SEMI FOWLERS, SIDE RAILS UP X2, CALL LIGHT WITHIN REACH, WILL ENDORSE TO ONCOMING SHIFT.
[2020-08-22 08:00] VITALS: BP 126/76
[2020-08-22] MEDS: BLOOD SUGAR DIAGNOSTIC 1 EACH STRIP IN SCH ×4 (08:09→22:00)
[2020-08-22] MEDS: AMLODIPINE BESYLATE 5 MG TABLET PO SCH (08:09)
[2020-08-22] MEDS: PANTOPRAZOLE 40 MG TABLET.DR PO SCH (08:09)
[2020-08-22] MEDS: Magnesium 1GM/D5W 100ML PREMIX 100 ML IV SCH ×2 (08:10→09:12)
[2020-08-22] MEDS: INSULIN REGULAR, HUMAN 100 UNIT/ML 3 ML VIAL SQ PRN ×4 (08:12→22:14)
[2020-08-22] MEDS ORDERED: SPIRONOLACTONE 25 MG TABLET PO SCH (09:00)
[2020-08-22] MEDS ORDERED: BUMETANIDE (1 MG) 1 MG TABLET PO SCH (09:00)
[2020-08-22 12:00] VITALS: BP 112/80
--- NOTE | 2020-08-22 12:20 | NUR ---
Patient noted with blood sugar od 416 and rechecked it was 406. Patient given 10 units of insulin per sliding scale . MD Rosales made aware. Per MD to recheck in 2 hours.
--- NOTE | 2020-08-22 14:20 | NUR ---
Blood sugar rechecked and noted to be 321mg/dl MD made aware and ordered to continue monitoring and using current SSI.
[2020-08-22 16:00] VITALS: BP 125/80
[2020-08-22] MEDS: IV NS 0.9% 1,000 ML IV PRN (16:00)
--- NOTE | 2020-08-22 17:30 | NUR ---
RN OPENING NOTES Patient in bed in stable condition. On 02 2 lpm via n/c with 02 sat of 100 %. No c.o chest pain during shift. No s/s of hyperglycemia. Patient is breathing even and unlabored. Bed is in lowest and locked position. Call light with in reach.
--- NOTE | 2020-08-22 19:30 | NUR ---
RN CLOSING NOTE Patient in bed in stable condition. On 02 2 lpm via n/c with 02 sat of 97%. No c.o chest pain during shift. No s/s of hyperglycemia. Patient's mg+ replaced during shift. Patient is breathing even and unlabored. Bed is in lowest and locked position. Call light with in reach. Endorsed to next shift for bebo.
--- NOTE | 2020-08-22 19:40 | NUR ---
RN NOTES CALLED 3W, SPOKE WITH TONY LINK. PROVIDED ENDORSEMENT REPORT FOR KAILASH/ TRANSFER OF PATIENT FROM [facility] TO [facility] IN RM 304 BED#2. ALL PERTINENT INFO ABOUT PT'S STATUS AND CONDITION PROVIDED. TONY LINK ACKNOWLEDGED. AQUACULTURE FARMER MADE AWARE.
[2020-08-22 20:00] VITALS: BP 116/75
--- NOTE | 2020-08-22 20:07 | NUR ---
RN NOTES PATIENT TRANSFERRED TO ROOM 304#2 OF 3W USING THE ACLS PROTOCOL. PATIENT SAFETY WAS MAINTAINED ALL PATIENT BELONGINGS AND MEDS TRANSFERRED WITH THE PATIENT. PATIENT SAFETY WAS MAINTAINED, TONY LINK RECEIVED THE PATIENT AND WILL CONTINUE CARE.
--- NOTE | 2020-08-22 20:07 | NUR ---
DEALER ANALYST NOTES PATIENT TRANSFERRED VIA HOSPITAL BED. WITH EYES CLOSED BUT EASY TO AROUSE. V/S FOLLOWS: BP- 116/75, T-98.5, P-81, 02 SAT- 96%. NO S/S OF DISTRESS, TOLERATING ROOM AIR FOR NOW BUT PRN OXYGEN IN PLACE. NO C/O PAIN. TELE MONITOR READING SR. PATIENT ABLE TO MAKE NEEDS KNOWN. WILL CONTINUE TO MONITOR.
--- NOTE | 2020-08-22 22:19 | NUR ---
DRUG SAFETY SPECIALIST NOTES PATIENT BS 337. MADE THE CHARGE NURSE, MIHIR BLACK. ADMINISTERED 20 UNITS OF LANTUS HS AND 8 UNITS OF REGULAR INSULIN PER SLIDING SCALE. LEFT SNACK BY THE BED SIDE. WILL MONITOR.
[2020-08-23] VITALS: BP 136/78
[2020-08-23] MEDS: NITROGLYCERIN PACKET 1 GM PACKET TOP SCH ×2 (03:13→15:00)
--- NOTE | 2020-08-23 03:37 | NUR ---
COORDINATOR SKILL TRAINING PROGRAM NOTES PATIENT REPORTED FEELING ANXIOUS. CHECKED THE BS IT WAS 189. PATIENT ALSO PERSPIRING A LOT. CHANGED THE GOWN. WILL CONTINUE TO MONITOR. ORANGE JUICE AT THE BED SIDE.
[2020-08-23 04:00] VITALS: BP 134/77
--- NOTE | 2020-08-23 05:15 | NUR ---
RT EKG DONE PER ORDER. RESULTS GIVEN TO TONY MEYERS
[2020-08-23] MEDS: BLOOD SUGAR DIAGNOSTIC 1 EACH STRIP IN SCH ×5 (05:30→21:28)
[2020-08-23] MEDS: ACETAMINOPHEN 325 MG TABLET PO PRN ×2 (05:41→10:58)
--- NOTE | 2020-08-23 05:42 | NUR ---
LIQUOR RECTIFIER NOTES PATIENT C/O HEADACHE. GIVEN TYLENOL PRN. WILL REASSESS.
[2020-08-23] MEDS: INSULIN REGULAR, HUMAN 100 UNIT/ML 3 ML VIAL SQ PRN ×2 (05:49→21:26)
--- NOTE | 2020-08-23 05:54 | NUR ---
HUMAN SERVICE COORDINATOR NOTES PATIENT BS 191. ADMINISTERED 3 UNITS OF INSULIN PER SLIDING SCALE.
--- NOTE | 2020-08-23 06:28 | NUR ---
EYELET RIVETER CLOSING 304 PATIENT IN BED A/OX4. NO S/S OF DISTRESS. NO C/O PAIN. PATIENT TOLERATING ROOM AIR. PATIENT ABLE TO MAKE NEEDS KNOWN. ALL NEEDS ATTENDED. ALL SCHEDULED MEDS ADMINISTERED. TELE MONITOR READING SR 70's-80's. PATIENT URINE OUTPUT IS 800 ML THROUGHOUT SHIFT. INTAKE OF 1250 ML. NITRO BID TAPED ON THE CHEST. SAFETY KEPT IN PLACE THE WHOLE SHIFT: BED IN LOWEST, LOCKED POSITION. CALL LIGHT WITHIN REACH. WILL ENDORSE CARE TO MORNING SHIFT NURSE.
[2020-08-23] MEDS: IV NS 0.9% 1,000 ML IV PRN ×2 (06:49→20:50)
[2020-08-23 07:30] LABS: BASOPHILS % (AUTO) 0.6 % (0.0-2.0); EOSINOPHILS % (AUTO) 0.2 % (0.0-6.0); HEMATOCRIT 42 % (39-51); HEMOGLOBIN 14.3 g/dL (13.5-17.5); LYMPHOCYTES # (AUTO) 0.7 /CMM (0.8-4.8); MEAN CORPUSCULAR HGB CONC 34 g/dl (31.0-36.0); MEAN CORPUSCULAR VOLUME 90 fL (80-96); MONOCYTES # (AUTO) 0.4 /CMM (0.1-1.30); MONOCYTES % (AUTO) 5.3 % (2.0-12.0); NEUTROPHILS # (AUTO) 5.5 /CMM (1.8-8.9); NEUTROPHILS % (AUTO) 82.9 % (43.0-81.0); PLATELET COUNT (AUTO) 111 /CMM (150-450); RED BLOOD CELL COUNT(AUTO) 4.61 MIL/uL (4.5-6.0); WHITE BLOOD COUNT (AUTO) 6.7 K/uL (4.3-11.0)
[2020-08-23 07:36] LABS: CREATINE KINASE, TOTAL 45 U/L (39-308)
[2020-08-23 07:40] LABS: ALANINE AMINOTRANSFERASE 22 U/L (12-78); ALBUMIN 2.7 g/dL (3.4-5.0); ALKALINE PHOSPHATASE 93 U/L (46-116); ASPARTATE AMINOTRANSFERASE 17 U/L (15-37); BILIRUBIN,TOTAL 0.8 mg/dL (0.2-1.0); CALCIUM, SERUM 7.6 mg/dL (8.5-10.1); CARBON DIOXIDE 23 mmol/L (21-32); CHLORIDE 106 mmol/L (98-107); CREATININE 1.4 mg/dL (0.6-1.3); GLUCOSE 206 mg/dL (74-106); MAGNESIUM 1.8 mg/dL (1.8-2.4); PHOSPHORUS 3.1 mg/dL (2.5-4.9); SODIUM SERUM 138 mmol/L (136-145); TOTAL PROTEIN, SERUM 5.8 g/dL (6.4-8.2); UREA NITROGEN, BLOOD 26 mg/dL (7-18)
[2020-08-23] MEDS: PANTOPRAZOLE 40 MG TABLET.DR PO SCH (07:52)
[2020-08-23 08:49] VITALS: BP 149/89
[2020-08-23] MEDS ORDERED: ERGOCALCIFEROL (VITAMIN D 2) 50,000 UNIT CAPSULE PO SCH (09:00)
[2020-08-23] MEDS: AMLODIPINE BESYLATE 5 MG TABLET PO SCH (09:06)
[2020-08-23 12:00] VITALS: BP 160/96
[2020-08-23] MEDS: METOPROLOL TARTRATE 50 MG TABLET PO SCH ×2 (12:17→18:41)
[2020-08-23] MEDS ORDERED: NITROGLYCERIN 0.4 MG/TAB BOTTLE ONE (14:19)
[2020-08-23] MEDS ORDERED: METOPROLOL TARTRATE INJ 5 MG/5 ML AMPUL ONE (14:19)
[2020-08-23] MEDS ORDERED: IV NS 0.9% 250 ML IV ONE (14:23)
[2020-08-23] MEDS ORDERED: IOHEXOL-350 100 ML VIAL IV ONE (14:23)
[2020-08-23] MEDS ORDERED: METOPROLOL TARTRATE INJ 5 MG/5 ML AMPUL IVP ONE (14:30)
[2020-08-23] MEDS ORDERED: NITROGLYCERIN 0.4 MG/TAB BOTTLE SL ONE (14:30)
[2020-08-23] MEDS ORDERED: METOPROLOL TARTRATE INJ 5 MG/5 ML AMPUL IVP PRN ×2 (14:30→15:00)
[2020-08-23 16:00] VITALS: BP 134/82
[2020-08-23 20:00] VITALS: BP 129/72
--- NOTE | 2020-08-23 20:13 | NUR ---
MS/TELE/RN RECEIVED PATIENT AWAKE, ALERT, ORIENTED, COMFORTABLE, NO C/O PAIN, NO DISTRESS NOTED, CALL LIGHT IN REACH. WILL MONITOR.
--- NOTE | 2020-08-23 21:12 | NUR ---
MS/TELE/RN PATIENT REQUESTED FOR A SLEEPING MEDICATION, PER PATIENT HE TAKES TRAZODONE 100 MG FOR SLEEP AT HOME. OBTAINED ORDER FROM SALVADOR GARCIA NP, OF TRAZODONE 100 MG PO Q HS PRN. CARRIED OUT.
[2020-08-23] MEDS: INSULIN GLARGINE, 100 UNIT/ML CARTRIDGE SQ SCH (21:26)
[2020-08-23] MEDS ORDERED: TRAZODONE 50 MG TABLET PO PRN (21:30)
[2020-08-24] VITALS: BP 128/73
[2020-08-24] MEDS: METOPROLOL TARTRATE 50 MG TABLET PO SCH ×3 (00:04→12:14)
[2020-08-24] MEDS: NITROGLYCERIN PACKET 1 GM PACKET TOP SCH (03:28)
[2020-08-24] MEDS: BLOOD SUGAR DIAGNOSTIC 1 EACH STRIP IN SCH ×2 (06:23→12:01)
--- NOTE | 2020-08-24 06:29 | NUR ---
MS/TELE/RN PATIENT IS AWAKE, ALERT, COMFORTABLE, NO C/O PAIN, NO DISTRESS NOTED, ALL NEEDS ATTENDED AT THIS TIME, WILL CONTINUE TO MONITOR.
[2020-08-24 07:02] LABS: BASOPHILS % (AUTO) 0.4 % (0.0-2.0); EOSINOPHILS % (AUTO) 0.1 % (0.0-6.0); HEMATOCRIT 43 % (39-51); HEMOGLOBIN 14.6 g/dL (13.5-17.5); LYMPHOCYTES # (AUTO) 0.7 /CMM (0.8-4.8); LYMPHOCYTES % (AUTO) 10.1 % (20.0-44.0); MEAN CORPUSCULAR HGB CONC 34 g/dl (31.0-36.0); MEAN CORPUSCULAR VOLUME 91 fL (80-96); MONOCYTES # (AUTO) 0.4 /CMM (0.1-1.30); MONOCYTES % (AUTO) 6.5 % (2.0-12.0); NEUTROPHILS # (AUTO) 5.4 /CMM (1.8-8.9); NEUTROPHILS % (AUTO) 82.9 % (43.0-81.0); PLATELET COUNT (AUTO) 116 /CMM (150-450); RED BLOOD CELL COUNT(AUTO) 4.67 MIL/uL (4.5-6.0); WHITE BLOOD COUNT (AUTO) 6.5 K/uL (4.3-11.0)
[2020-08-24 07:08] LABS: CALCIUM, SERUM 7.9 mg/dL (8.5-10.1); CREATININE 1.1 mg/dL (0.6-1.3)
--- NOTE | 2020-08-24 07:28 | NUR ---
RN OPENING NOTES PATIENT IN BED AWAKE, A/OX4. NO S/S OF DISTRESS. NO C/O CHEST PAIN. ON ROOM AIR, TOLERATING WELL NO SOB NOTED. PATIENT ABLE TO MAKE NEEDS KNOWN. SAFETY PRECAUTIONS OBSERVED AND MAINTAINED: KEPT BED IN LOWEST, LOCKED POSITION. CALL LIGHT WITHIN REACH. IV LINE ON LEFT AC, PATENT AND FLUSHES WELL, NO INFILTRATION NOTED. WILL CONTINUE TO MONITOR PATIENT'S STATUS.
[2020-08-24] MEDS: PANTOPRAZOLE 40 MG TABLET.DR PO SCH (07:48)
[2020-08-24 08:00] VITALS: BP 123/74
[2020-08-24] MEDS: AMLODIPINE BESYLATE 5 MG TABLET PO SCH (09:29)
[2020-08-24] MEDS: INSULIN REGULAR, HUMAN 100 UNIT/ML 3 ML VIAL SQ PRN (12:07)
[2020-08-24 12:14] VITALS: BP 130/81
--- NOTE | 2020-08-24 14:44 | NUR ---
JAVA ANDROID DEVELOPER NOTES: PATIENT IS STABLE WITH NORMAL VITAL SIGNS, HEALTH EDUCATION PROVIDED, EDUCATION ON SMOKING CESSATION PROVIDED. EDUCATED ON ALL HOME AND PRESCRIBED MEDICATIONS ORDERED. PATIENT VERBALIZED UNDERSTANDING. IV LINE REMOVED, ALL BELONGINGS RETURNED AND RECEIVED BY PATIENT, ARMBAND REMOVED. PATIENT LEFT AT 1340 IN STABLE CONDITION AND WAS PICKED UP FRIEND LUKE.
[2020-08-25 14:06] LABS: *SPE A/G RATIO 1.1 (0.7-1.7); *SPE ALBUMIN 2.9 g/dL (2.9-4.4); *SPE ALPHA-1-GLOBULIN 0.2 g/dL (0.0-0.4); *SPE ALPHA-2-GLOBULIN 0.5 g/dL (0.4-1.0); *SPE BETA GLOBULIN 0.9 g/dL (0.7-1.3); *SPE GLOBULIN, TOTAL 2.7 g/dL (2.2-3.9); *SPE M-SPIKE 0.2 g/dL (Not Observed)
== END 2020-08-24 13:45 | disposition home or self-care (01) | DRG 203 ==
LOC: ER 19:05 → TELE1 22:38 → TELE 08-22 19:59 → MED 08-23 21:08
PROVIDERS: ADMIT Nurse Practitioner Family; ATTEND Internal Medicine
DX: R07.89 Other chest pain (principal); N17.0 Acute kidney failure with tubular necrosis; I50.9 Heart failure, unspecified; I13.0 Hypertensive heart and chronic kidney disease with heart failure and stage 1 through stage 4 chronic kidney disease, or unspecified chronic kidney disease; E11.65 Type 2 diabetes mellitus with hyperglycemia; E44.1 Mild protein-calorie malnutrition; E87.1 Hypo-osmolality and hyponatremia; Z20.822 Contact with and (suspected) exposure to COVID-19; Z59.0 Homelessness; E83.42 Hypomagnesemia; E78.5 Hyperlipidemia, unspecified; Z79.899 Other long term (current) drug therapy; F17.200 Nicotine dependence, unspecified, uncomplicated; N13.9 Obstructive and reflux uropathy, unspecified; Z79.4 Long term (current) use of insulin; Z82.49 Family history of ischemic heart disease and other diseases of the circulatory system
CPT/HCPCS: 36415; 71045-TC; 75574; 76770-TC; 80048-TC; 80053-TC; 80061-TC; 80076-TC; 82140-TC; 82550-TC; 82962-TC; 83690-TC; 83735-TC; 83970; 84100-TC; 84155; 84165; 84484-TC; 85025-TC; 85730-TC; 87081-TC; 93307-TC; C9803; G0378; J1815; J2270; J2405; J3475; J3490; J7030; J7040; J7050; Q9967